=== PATIENT | male | born 1980 | race Caucasian/White ===

== ENCOUNTER 2020-04-24 09:40 | Outpatient (REF) | payer OTHER, SELFPAY ==
--- NOTE | 2020-04-24 09:46 | XR_ITS ---
EXAMINATION: XR FEMUR, RIGHT CLINICAL INFORMATION: Right thigh pain. COMPARISON: Right hip radiograph dated 03/28/2019. TECHNIQUE: AP and lateral views of the right femur were obtained. FINDINGS: No fracture. Right hip is approximated. Bone density is preserved. No lytic or blastic osseous lesions. Normal soft tissues. No radiopaque foreign body. Knee is approximated. XR/XR femur RT 2V IMPRESSION: Right femur: No acute fracture or malalignment. Normal radiographic appearance of the soft tissues.
== END 2020-04-24 09:41 | disposition home or self-care (01) ==
LOC: HO.XRAY 09:40
PROVIDERS: PCP Internal Medicine; Visit Provider Internal Medicine
DX: M79.651 Pain in right thigh (principal)
CPT/HCPCS: 73552

== ENCOUNTER 2020-05-26 12:48 | Outpatient (REF) | payer OTHER, SELFPAY ==
[2020-05-26 13:21] LABS: MANUAL DIFF FLAG NO
[2020-05-26 13:27] LABS: Basophils Absolute Auto 0.1 X10*3/uL (0.0-0.2); Basophils Percent Auto 0.7 % (0-2); Eosinophils Absolute Auto 0.1 X10*3/uL (0.0-0.4); Eosinophils Percent Auto 1.4 % (0-4); Hematocrit 45.4 % (42-52); Hemoglobin 14.8 g/dl (14.0-18.0); Imm Gran Abs Auto 0.04 X10*3/uL (0.00-0.03); Imm Gran Pct Auto 0.4 % (0.0-0.4); Lymphocytes Absolute Auto 2.6 X10*3/uL (1.2-4.9); Lymphocytes Percent Auto 25.4 % (20-40); Mean Corpuscular HGB Conc 32.6 g/dl (31.0-36.0); Mean Corpuscular Hemoglobin 29.8 pg (27.0-33.0); Mean Corpuscular Volume 91.3 fL (80-98); Mean Platelet Volume 9.3 fL (9.4-12.4); Monocytes Absolute Auto 0.6 X10*3/uL (0.1-1.2); Monocytes Percent Auto 6.2 % (2-11); Neutrophils Absolute Auto 6.7 X10*3/uL (2.0-8.3); Neutrophils Percent Auto 65.9 % (45-73); Platelet Count 331 X10*3/uL (160-400); Red Blood Count 4.97 X10*6/uL (4.60-5.80); Red Cell Distribution Width 13.1 % (11.0-16.0); White Blood Count 10.2 X10*3/uL (4.8-10.8)
[2020-05-26 14:20] LABS: Alanine Aminotransferase 9 U/L (0-40); Albumin Level 4.4 g/dL (3.5-5.0); Alkaline Phosphatase 102 U/L (39-117); Anion Gap 15 (12-20); Aspartate Amino Transferase 14 U/L (5-37); Bilirubin Total 0.3 mg/dL (0.0-1.0); Blood Urea Nitrogen 12 mg/dL (9-16); Calcium 9.5 mg/dL (8.4-10.2); Carbon Dioxide 30 mmol/L (22-29); Chloride 98 mmol/L (96-108); Estimated Glomerular Filt Rate > 60; Glucose Random 102 mg/dL (60-115); Potassium 4.3 mmol/L (3.3-5.1); Sodium 139 mmol/L (135-145); Total Protein 7.4 g/dL (6.5-8.0)
[2020-05-26 14:43] LABS: TSH reflex Free T4 3.41 uIU/mL (0.32-4.0)
== END 2020-05-26 12:49 | disposition home or self-care (01) ==
LOC: HO.LAB 12:48
PROVIDERS: Absent Provider Internal Medicine; PCP Internal Medicine; Visit Provider Internal Medicine
DX: R63.4 Abnormal weight loss (principal)
CPT/HCPCS: 36415; 80053; 84443; 85025

== ENCOUNTER 2020-05-30 14:00 | Outpatient (RCR) | payer OTHER, SELFPAY ==
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
--- NOTE | 2020-06-13 14:40 | MHC.PT.DC ---
[facility] Office [place] Office [place] Office [address] Keshia Hoang [address] [phone] F: [phone] F: [phone] F: [phone] F: [phone] Physical Therapy Discharge Report Diagnosis: dorsalgia, pain in R thigh Date of Surgery: Date of Evaluation: 05/12/20 Date of Discharge: 06/13/20 Treatments to Date: 5 Cancellations to Date: 1 No Shows to Date: 2 Discharge Status: Visit Non-compliance Discharge Summary: D/c secondary to noncompliance with scheduling policy and 2 consecutive no shows and a cancellation. The assessment from last attended visit: Pt arrived and speaking in low tone and appeared discouraged due to persistent sx and surgery being denied. Discussed at length, PT POC and timeline for muscle growth and healing. Also discussed f/u with MD if he feels that he is getting worse. He has a f/u soon with PCP, but he is not sure of the date. Challenged with maintaining neutral spine with quadruped. During rockerboard, he was also challenged maintaining static balance and reports feet tired following balance. Pain reported with staggered stance with R LE posterior and poor balance noted. Continue with core strenghening, stretching, and balance to tolerance and continue to monitor for any additional red flag. Electronically signed by: Vivian Cano PT Please sign and return to therapist. Thank you for your referral.
== END 2020-06-13 14:40 | disposition home or self-care (01) ==
LOC: HO.PTCHIC 14:00
PROVIDERS: PCP Internal Medicine; Visit Provider Internal Medicine
DX: M54.9 Dorsalgia, unspecified (principal); M79.651 Pain in right thigh
CPT/HCPCS: 97110; 97112; 97162; 97163

== ENCOUNTER → 2020-08-07 15:31 | Outpatient (BNVA) | payer OTHER, SELFPAY | PROVIDERS: PCP Internal Medicine; Visit Provider Anesthesiology | DX: M54.9 Dorsalgia, unspecified (principal); G89.4 Chronic pain syndrome; M47.817 Spondylosis without myelopathy or radiculopathy, lumbosacral region; R10.9 Unspecified abdominal pain; G89.29 Other chronic pain | CPT/HCPCS: 99212 ==

== ENCOUNTER → 2020-12-26 15:53 | Outpatient (BNVA) | payer OTHER, SELFPAY | PROVIDERS: PCP Internal Medicine; Visit Provider Nurse Practitioner | CPT/HCPCS: Q3014 ==

== ENCOUNTER → 2024-04-05 13:38 | Outpatient (REF) | payer OTHER, SELFPAY ==
--- NOTE | 2024-04-05 13:44 | ECG_ITS ---
Test Reason : qtc check f33.2 f12.0 f11.20 Blood Pressure : / mmHG Vent. Rate : 090 BPM Atrial Rate : 090 BPM P-R Int : 144 ms QRS Dur : 080 ms QT Int : 374 ms P-R-T Axes : 074 -33 024 degrees QTc Int : 457 ms Normal sinus rhythm Left axis deviation Abnormal ECG When compared with ECG of 25-MAY-2016 11:16, No significant change was found Referred By: Shahrzad Pittman Electronically Signed By:ZULY SWEENEY
== END ==
LOC: HO.CARD 13:38
PROVIDERS: PCP Internal Medicine; Visit Provider Psychiatry & Neurology Psychiatry
DX: F33.2 Major depressive disorder, recurrent severe without psychotic features (principal); F12.10 Cannabis abuse, uncomplicated; F11.20 Opioid dependence, uncomplicated
CPT/HCPCS: 93005

== ENCOUNTER → 2024-04-05 13:44 | Outpatient (BNV) | payer OTHER, SELFPAY | PROVIDERS: PCP Internal Medicine; Visit Provider Internal Medicine | DX: Z13.6 Encounter for screening for cardiovascular disorders (principal) | CPT/HCPCS: 93010 ==

== ENCOUNTER 2024-04-10 08:28 | Outpatient (REF) | payer OTHER, SELFPAY ==
[2024-04-10 08:55] LABS: MANUAL DIFF FLAG NO
[2024-04-10 09:03] LABS: Basophils Absolute Auto 0.1 X10*3/uL (0.0-0.2); Eosinophils Absolute Auto 0.2 X10*3/uL (0.0-0.4); Eosinophils Percent Auto 1.5 % (0-4); Hematocrit 49.6 % (42.0-52.0); Hemoglobin 16.9 g/dl (14.0-18.0); Imm Gran Abs Auto 0.05 X10*3/uL (0.00-0.03); Imm Gran Pct Auto 0.5 % (0.0-0.4); Lymphocytes Absolute Auto 2.7 X10*3/uL (1.2-4.9); Lymphocytes Percent Auto 27.6 % (20-40); Mean Corpuscular HGB Conc 34.1 g/dl (31.0-36.0); Mean Corpuscular Hemoglobin 28.7 pg (27.0-33.0); Mean Corpuscular Volume 84.4 fL (80.0-98.0); Mean Platelet Volume 8.6 fL (9.4-12.4); Monocytes Absolute Auto 0.4 X10*3/uL (0.1-1.2); Monocytes Percent Auto 4.5 % (2-11); Neutrophils Absolute Auto 6.3 x10*3/uL (2.0-8.3); Neutrophils Percent Auto 64.9 % (45-73); Platelet Count 328 X10*3/uL (160-400); Red Blood Count 5.88 X10*6/uL (4.60-5.80); Red Cell Distribution Width 12.3 % (11.0-16.0); White Blood Count 9.7 X10*3/uL (4.8-10.8)
[2024-04-10 09:12] LABS: Estimated Average Glucose 100 mg/dL; Hemoglobin A1C 138.0696 umol/L; Hemoglobin A1c % 5.1 % (<6.0); Total Hemoglobin (HGBA1C) 4315.8167 umol/L
[2024-04-10 09:34] LABS: Albumin Level 4.3 g/dL (3.5-5.0); Anion Gap 14 (12-20); Aspartate Amino Transferase 27 U/L (5-37); Bilirubin Total 0.4 mg/dL (0.0-1.0); Blood Urea Nitrogen 13 mg/dL (9-16); C Reactive Protein 0.86 mg/dL (< or = 0.50); Calcium 9.7 mg/dL (8.4-10.2); Carbon Dioxide 25 mmol/L (22-29); Chloride 101 mmol/L (96-108); Cholesterol 216 mg/dL (<200); Estimated Glomerular Filt Rate > 60; Glucose Fasting 93 mg/dL (60-99); HDL Cholesterol 44 mg/dL (>40); Iron 128 mcg/dL (45-160); LDL Cholesterol Calculated 122 mg/dL (<100); Percent Iron Saturation 44 % (15-50); Potassium 4.3 mmol/L (3.3-5.1); Sodium 136 mmol/L (135-145); Total Iron Binding Capacity 288 mcg/dL (228-428); Total Protein 7.7 g/dL (6.5-8.0); Triglycerides 251 mg/dL (<150); Unsaturated Iron Binding 160 ug/dL
[2024-04-10 09:41] LABS: Thyroid Stimulating Hormone 3.74 uIU/mL (0.32-4.0)
[2024-04-10 09:44] LABS: Erythrocyte Sedimentation Rate 14 MM/HR (0-15)
[2024-04-10 09:48] LABS: Folate 5.9 ng/mL (> or = 4.0); Vitamin B12 488 pg/mL (200-900)
[2024-04-10 11:43] LABS: Amphetamine Screen Urine Not Detected (Not Detect); Barbiturates, Urine Not Detected (Not Detect); Benzodiazepines Screen Urine Not Detected (Not Detect); Buprenorphine Scr Positive (Not Detect); Cannabinoid Screen Urine Not Detected (Not Detect); Cocaine Screen Urine POSITIVE (Not Detect); Fentanyl, urine Not Detected (Not Detect); Methadone Screen, Urine Positive (Not Detect); Opiate Screen Urine Not Detected (Not Detect); Oxycodone Screen Urine Not Detected (Not Detect); Phencyclidine Screen Urine Not Detected (Not Detect)
[2024-04-10 12:34] LABS: Alanine Aminotransferase 31 U/L (0-40); Alkaline Phosphatase 163 U/L (39-117)
[2024-04-10 12:58] LABS: Free T4 (Free Thyroxine) 0.86 ng/dL (0.71-1.85); Vitamin D 25-OH Total 14.5 ng/mL (>30)
[2024-04-12 15:16] LABS: HBS Num1 0.58 mIU/mL (0-7.99); HBc Num1 0.07 S/CO (0.00-0.79); HBsAGNum1 0.44 S/CO (0.00-0.99); HIV AB/AG Nonreactive (Nonreactive); HIV Num 1 0.07 S/CO (0.00-0.99); Hepatitis B Core Antibody Nonreactive (Nonreactive); Hepatitis B Surface Antigen Negative (Negative); ~HepC Num1 0.07 S/CO (0.00-0.79); ~Hepatitis B Surface Antibody NONREACTIVE (Nonreactive); ~Hepatitis C Antibody Nonreactive (Nonreactive)
[2024-04-12 15:19] LABS: Syphilis Screen Nonreactive (Nonreactive)
[2024-04-13 19:33] LABS: Zinc 85 mcg/dL (60-130)
[2024-04-17 13:54] LABS: Vitamin B1 9 nmol/L (8-30)
== END 2024-04-10 08:29 | disposition home or self-care (01) ==
LOC: HO.LAB 08:28
PROVIDERS: PCP Internal Medicine; Visit Provider Psychiatry & Neurology Psychiatry
DX: F14.20 Cocaine dependence, uncomplicated (principal); F11.20 Opioid dependence, uncomplicated; F43.12 Post-traumatic stress disorder, chronic; F39 Unspecified mood [affective] disorder; F19.20 Other psychoactive substance dependence, uncomplicated; F41.1 Generalized anxiety disorder; Z13.1 Encounter for screening for diabetes mellitus
CPT/HCPCS: 36415; 80053; 80061; 80307; 82306; 82550; 82607; 82746; 83036; 83090; 83540; 84207; 84425; 84439; 84443; 84630; 85025; 85652; 86140; 86704; 86706; 86780; 86803; 87340; 87389

== ENCOUNTER → 2024-04-13 12:00 | Outpatient (BNV) | payer OTHER, SELFPAY | PROVIDERS: Visit Provider Psychiatry & Neurology Psychiatry | DX: F19.20 Other psychoactive substance dependence, uncomplicated (principal); F43.10 Post-traumatic stress disorder, unspecified; F45.42 Pain disorder with related psychological factors; F39 Unspecified mood [affective] disorder; F91.8 Other conduct disorders; F63.89 Other impulse disorders; Z86.59 Personal history of other mental and behavioral disorders | CPT/HCPCS: 99214 ==

== ENCOUNTER 2024-04-24 12:30 | Outpatient (RCR) | payer OTHER, SELFPAY ==
[2024-04-05 13:12] VITALS: BMI 28.1
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
--- NOTE | 2024-04-05 15:00 | PC.NURSE ---
Received EKG results from [facility]. NSR, prolonged QT 400, QTC 483. Patient also completed EKG at [facility]. NSR L axis deviation. OT 374, QTc 457. Reviewed EKG results with Dr Pittman. Per Dr. Riggins instructions patient to take 1/2 tab of seroquel tonight. I called Luis Carlos regarding abnormal EKG and directed him to decrease Seroquel tonight to 1/2 tab as a result and told him he will see Dr. Pittman on Tuesday04/05/24 to f/u. Luis Carlos agreed to the instructions.
[2024-04-05 15:10] VITALS: BP 108/80; PULSE 88; TEMP 36.3
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
--- NOTE | 2024-04-12 17:47 | HO.PHP ---
Client's case has been opened and reviewed in team.
--- NOTE | 2024-04-13 10:03 | PC.NURSE ---
Dr. Pittman is aware of Lab results including: CRP 0.86, Triglycerides 251, Cholesterol 216, LDL 122, Alk phos 163, Vit D 14.5, TSH 3.74, RBC 5.88, mpv 8.6, Imgran abs auto 0.05.
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
--- NOTE | 2024-04-16 12:02 | PC.NURSE ---
Luis Carlos is requesting a PIRES be done today before he has to go for a PIRES today for court. He stated he does not know why the previous PIRES done here was positive for cocaine. He stated he can not go back to snf. Patient appears hyperverbal. Patient is aware we do PIRES for medical purposes and they are not witnessed. Dr Pittman is aware. Telephone order obtained for a PIRES and PIRES obtained from patient.
[2024-04-17 07:47] LABS: Amphetamine Screen Urine Not Detected (Not Detect); Barbiturates, Urine Not Detected (Not Detect); Benzodiazepines Screen Urine Not Detected (Not Detect); Buprenorphine Scr Positive (Not Detect); Cannabinoid Screen Urine Not Detected (Not Detect); Cocaine Screen Urine Not Detected (Not Detect); Fentanyl, urine Not Detected (Not Detect); Methadone Screen, Urine Positive (Not Detect); Opiate Screen Urine Not Detected (Not Detect); Oxycodone Screen Urine Not Detected (Not Detect); Phencyclidine Screen Urine Not Detected (Not Detect)
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
[2024-04-19 09:13] VITALS: BP 100/80; PULSE 80
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
== END 2024-04-24 23:59 | disposition home or self-care (01) ==
LOC: HO.PHPA 12:30
PROVIDERS: Visit Provider Psychiatry & Neurology Psychiatry
DX: F33.2 Major depressive disorder, recurrent severe without psychotic features (principal); F19.24 Other psychoactive substance dependence with psychoactive substance-induced mood disorder; F43.10 Post-traumatic stress disorder, unspecified; F45.42 Pain disorder with related psychological factors; F39 Unspecified mood [affective] disorder; F91.8 Other conduct disorders; F63.89 Other impulse disorders; Z87.828 Personal history of other (healed) physical injury and trauma; Z86.59 Personal history of other mental and behavioral disorders; Z79.899 Other long term (current) drug therapy
CPT/HCPCS: 80307; 90791; 90853